=== PATIENT | male | born 1985 | race Caucasian/White ===

== ENCOUNTER 2018-01-15 11:55 | Emergency (ER) | payer SELFPAY ==
[2018-01-15 11:56] VITALS: BP 128/83; PULSE 84; RESP 16; TEMP 36.4; O2SAT 96; BMI 27.6
[2018-01-15 12:16] VITALS: O2SAT 96
--- NOTE | 2018-01-15 12:25 | ED.VISSUMM ---
- ER Visit Summary Date of Service: 01/15/18 Chief Complaint: Cough History of Present Illness: The patient is a 32 M presenting for evaluation secondary to cough. Patient states that over the course last 2-3 days he has had a cough that is intermittently productive of sputum. Patient states that he has throat burning and burning in his chest and lungs. He does have sore throat. He endorses mild shortness of breath but denies any fevers nausea vomiting or diarrhea. Denies any significant nasal drainage. Patient states that [id number] remedies have not alleviated this. Physical Examination: Vital signs are within normal limits, patient is afebrile. General: Patient is well-nourished well-developed and in no acute distress. Head: Normocephalic, atraumatic Eyes: Pupils equal round and reactive bilaterally, extra occular motion intact bialterally ENT: Moist mucous membranes, mildly erythematous nasopharynx and oropharynx without any evidence of exudates or asymmetry Neck: Supple, no lymphadenopathy, no JVD, no meningismus CVS: Heart regular rate and rhythm, no murmurs, rubs or gallops, radial pulses 2+ bilaterally Resp: Respirations nondistressed, lung sounds clear bilaterally Abdomen: Soft, nontender, nondistended, no palpable masses, normal bowel sounds Back: Nontender Extremities: Nontender, atraumatic, active full range of motion, no peripheral edema Skin: warm, no rashes, no petechia Neuro: Alert and oriented x 4, CN 2-12 intact, no lateralizing neurological defecits Psyc: Normal affect Test Results: None indicated Emergency Department Course and Treatment: Patient presented secondary to a respiratory illness. He has benign physical exam and normal vital signs. I do not believe the workup is necessary at this point. Patient will be treated for bronchitis with a prednisone burst and an inhaler. Disposition: Discharge Impression: 1. Bronchitis This note was generated with [employer] dictation software. It may contain incorrect words, spelling, and punctuation that were not noted in review of the chart prior to signing ED Disposition - Plan for ED Patient: Disposition: Home or Assisted Living Chief Complaint: Cough Diagnosis: Bronchitis Instructions: ED Bronchitis Asthmatic Prescriptions: Albuterol Inhaler [Ventolin Hfa] 1 - 2 puff INHALATION Q4H PRN PRN #1 inhaler PRN Reason: Wheezing Prednisone [Deltasone] 60 mg PO DAILY #15 tab Referrals: Selena Santos [NON-STAFF] - As Needed
--- NOTE | 2018-01-15 12:28 | ED.DCSUM_ITS ---
- ER Visit Summary Date of Service: 01/15/18 Chief Complaint: Cough History of Present Illness: The patient is a 32 M presenting for evaluation secondary to cough. Patient states that over the course last 2-3 days he has had a cough that is intermittently productive of sputum. Patient states that he has throat burning and burning in his chest and lungs. He does have sore throat. He endorses mild shortness of breath but denies any fevers nausea vomiting or diarrhea. Denies any significant nasal drainage. Patient states that [id number]-[id number] remedies have not alleviated this. Physical Examination: Vital signs are within normal limits, patient is afebrile. General: Patient is well-nourished well-developed and in no acute distress. Head: Normocephalic, atraumatic Eyes: Pupils equal round and reactive bilaterally, extra occular motion intact bialterally ENT: Moist mucous membranes, mildly erythematous nasopharynx and oropharynx without any evidence of exudates or asymmetry Neck: Supple, no lymphadenopathy, no JVD, no meningismus CVS: Heart regular rate and rhythm, no murmurs, rubs or gallops, radial pulses 2 + bilaterally Resp: Respirations nondistressed, lung sounds clear bilaterally Abdomen: Soft, nontender, nondistended, no palpable masses, normal bowel sounds Back: Nontender Extremities: Nontender, atraumatic, active full range of motion, no peripheral edema Skin: warm, no rashes, no petechia Neuro: Alert and oriented x 4, CN 2-12 intact, no lateralizing neurological defecits Psyc: Normal affect Test Results: None indicated Emergency Department Course and Treatment: Patient presented secondary to a respiratory illness. He has benign physical exam and normal vital signs. I do not believe the workup is necessary at this point. Patient will be treated for bronchitis with a prednisone burst and an inhaler. Disposition: Discharge Impression: 1. Bronchitis This note was generated with [employer] dictation software. It may contain incorrect words, spelling, and punctuation that were not noted in review of the chart prior to signing ED Disposition - Plan for ED Patient: Disposition: Home or Assisted Living Chief Complaint: Cough Diagnosis: Bronchitis Instructions: ED Bronchitis Asthmatic Prescriptions: Albuterol Inhaler [Ventolin Hfa] 1 - 2 puff INHALATION Q4H PRN PRN #1 inhaler PRN Reason: Wheezing Prednisone [Deltasone] 60 mg PO DAILY #15 tab Referrals: Selena Satnos [NON-STAFF] - As Needed
[2018-01-15 12:50] VITALS: RESP 20
--- NOTE | 2018-01-16 11:33 | CM.ED ---
ED Callback: Patient states that his cough is some better today. He states he will be getting his prescriptions filled tomorrow. The patient does not have a PCP or insurance. I offered assistance. Patient states he has a friend that is helping him connect with an insurance follow up rep. The patient did accept my contact information and states he will call if he would like additional support with these items.
== END 2018-01-15 12:50 | disposition home or self-care (01) ==
PROVIDERS: Emergency Provider Emergency Medicine
DX: J40 Bronchitis, not specified as acute or chronic (principal); F43.10 Post-traumatic stress disorder, unspecified; Z79.899 Other long term (current) drug therapy; Z72.0 Tobacco use
CPT/HCPCS: 99282

== ENCOUNTER 2018-11-25 10:15 | Emergency (ER) | payer SELFPAY ==
[2018-11-25 10:16] VITALS: BP 132/90; PULSE 110; RESP 18; TEMP 37.6; O2SAT 99; BMI 28.3
--- NOTE | 2018-11-25 10:32 | RAD_ITS ---
STUDY: X-RAY CHEST REASON FOR EXAM: Male, 33 years old. Cough. Sore throat. TECHNIQUE: Single AP portable view of the chest. COMPARISON: Comparison is made with prior study dated March 22, 2016. FINDINGS: The lungs are clear and expanded. There is no demonstrated pleural abnormality. Normal size heart. Normal mediastinum and banadr. Normal visualized pulmonary arteries. Normal visualized aortic arch and descending thoracic aorta. Normal visualized thoracic spine. Normal visualized ribs, clavicles, and shoulders. There is no demonstrated abnormality of the visualized soft tissue structures of the upper abdomen. RAD/Chest 1 View (Portable) IMPRESSION: Normal x-ray examination of the chest. Electronically Signed: Sonny Borja MD at 11:05 EST , Service support ,
--- NOTE | 2018-11-25 10:36 | ED.DCSUM_ITS ---
- ER Visit Summary Date of Service: 11/25/18 Chief Complaint: Sore throat, cough History of Present Illness: The patient is a 33 M presenting with sore throat. Patient states this started 3 weeks ago. He states he started to feel better and then over the past 2 days he has had increasing pain in his throat. He denies difficulty swallowing or voice change. He has had subjective fever. He also complains of rhinorrhea and cough. He recently quit smoking. Denies other complaints. Physical Examination: Vitals are stable. Temperature 99.6 Alert no acute distress. HEENT exam pharyngeal erythema with no exudate. Uvula midline Neck is supple. No meningismus Lungs are clear and equal bilaterally. Heart is regular rate and rhythm. Abdomen is soft nontender nondistended. Extremities are unremarkable. Skin is warm and dry. No rash Remainder of exam is unremarkable. Emergency Department Course and Treatment: Patient was given Tylenol, Decadron. Chest x-ray shows no acute process. Rapid strep is positive. Rapid influenza is negative. Patient is given Zithromax due to penicillin allergy. Advised to follow-up with primary care physician. Advised return to ED if worsening complaints. Disposition: Discharge home Impression: Strep pharyngitis This note was generated with [employer] dictation software. It may contain incorrect words, spelling, and punctuation that were not noted in review of the chart prior to signing ED Disposition - Plan for ED Patient: Referrals: Care Physician,No Primary [Primary Care Provider] -
[2018-11-25] MEDS: Acetaminophen 500 MG Tablet 1000 MG PO (11:07)
--- NOTE | 2018-11-25 11:46 | ED.DEP ---
ED Disposition - Plan for ED Patient: Instructions: ED Strep Pharyngitis Conf Prescriptions: Azithromycin [Zithromax Z-Ulisses] 250 mg PO UD #1 box Referrals: Care Physician,No Primary [Primary Care Provider] - Jovanny Griffith MD [STAFF PHYSICIAN] -
[2018-11-25] MEDS: Azithromycin 250 MG Tablet 500 MG PO (12:04)
== END 2018-11-25 12:19 | disposition home or self-care (01) ==
PROVIDERS: Emergency Provider Emergency Medicine
DX: J02.0 Streptococcal pharyngitis (principal); Z87.891 Personal history of nicotine dependence; Z79.51 Long term (current) use of inhaled steroids; Z79.899 Other long term (current) drug therapy
CPT/HCPCS: 71045; 87077; 87804; 87880; 99283